=== PATIENT | male | born 1980 | race Caucasian/White ===

== ENCOUNTER 2021-08-10 23:17 | Emergency (ER) | payer OTHER ==
[~2021-08-10] VITALS: Ht 177.8 cm; Wt 127.0 kg
[2021-08-10 23:17] VITALS: BP 129/76
--- NOTE | 2021-08-10 23:17 | NUR ---
XENA AGARWAL VIA CHRISTINE, ACCOMPANIED BY ELLIS .
[2021-08-11 00:15] VITALS: BP 129/76
--- NOTE | 2021-08-11 00:15 | NUR ---
PATIENT BIB [employer]. PATIENT EXAMINED BY DR. VEGA. PATIENT MEDICALLY CLEARED AND RELEASED IN CUSTODY IN STABLE CONDITION. ORIGINAL PRE-BOOK FORM GIVEN TO OFFICER ANASTASIYA, #[id number].
== END 2021-08-11 00:15 ==
LOC: MED 23:17
DX: S30.810A Abrasion of lower back and pelvis, initial encounter (principal); F10.129 Alcohol abuse with intoxication, unspecified; R07.89 Other chest pain; Z02.89 Encounter for other administrative examinations; X58.XXXA Exposure to other specified factors, initial encounter; Y93.89 Activity, other specified; Y92.89 Other specified places as the place of occurrence of the external cause; Y99.8 Other external cause status
CPT/HCPCS: 90715; 99283